=== PATIENT | male | born 1975 ===

== ENCOUNTER 2018-05-24 12:18 | Emergency (ER) | payer BC ==
[~2018-05-24] VITALS: Ht 172.7 cm; Wt 71.7 kg
[2018-05-24 12:42] LABS: BASOPHILS % (AUTO) 0.5 % (0.0-2.0); EOSINOPHILS % (AUTO) 1.4 % (0.0-7.0); HEMATOCRIT 24.6 % (36.7-47.1); HEMOGLOBIN 8.3 g/dL (12.5-16.3); LYMPHOCYTES # (AUTO) 1.1 K/uL (20.0-40.0); LYMPHOCYTES % (AUTO) 31.4 % (20.5-51.5); MEAN CORPUSCULAR HEMOGLOBIN 28.6 uug (23.8-33.4); MEAN CORPUSCULAR HGB CONC 34 g/dL (32.5-36.3); MEAN CORPUSCULAR VOLUME 85.5 fL (73.0-96.2); MONOCYTES # (AUTO) 0.2 K/uL (2.0-10.0); MONOCYTES % (AUTO) 5.7 % (0.0-11.0); PLATELET COUNT (AUTO) 200 K/uL (152-348); RED BLOOD CELL COUNT(AUTO) 2.88 MIL/uL (4.06-5.63); WHITE BLOOD COUNT (AUTO) 3.3 K/uL (3.6-10.2)
[2018-05-24 12:51] LABS: CREATININE 0.9 mg/dL (0.6-1.3); POTASSIUM 3.6 mmol/L (3.5-5.1)
[2018-05-24 12:56] LABS: BILIRUBIN,DIRECT 0.1 mg/dL (0.0-0.2); BILIRUBIN,TOTAL 0.1 mg/dL (0.2-1.0); TOTAL PROTEIN, SERUM 6.2 g/dL (6.4-8.2)
--- NOTE | 2018-05-24 13:07 | NUR ---
Parents x2 are bedside, pending results and disposition
--- NOTE | 2018-05-24 15:00 | NUR ---
DOUBLE CHECKED THE ONE UNIT OF PRBC WITH ANTHONY LYON AGAINST PATIENT'S [place] AND VERBAL VERIFICATION.
--- NOTE | 2018-05-24 15:15 | NUR ---
1458: Consent reviewed 1500: one unit PRBC was double checked with 2 nurses (ANTHONY Salvador & DATA VIRTUAL[employer]ATION CONSULTANT Erick). TIMEOUT done with patient. Please see blood transfusion record in the [facility] for vital signs.
--- NOTE | 2018-05-24 15:54 | NUR ---
Patient is resting comfortably on gurney with eyes closed
--- NOTE | 2018-05-24 16:28 | NUR ---
Patient self catheterizes with his own urinary supplies from home, pending disposition@this time
--- NOTE | 2018-05-24 16:54 | NUR ---
IV removed. Catheter intact and site benign. Pressure and 4x4 gauze applied to site. No bleeding noted. Patient discharged to home in stable conditon. Written and verbal after care instructions given to patient. Patient verbalizes understanding of instructions. Patient's parents are coming to picker packer the patient.
== END 2018-05-24 17:11 | disposition home or self-care (01) ==
LOC: ER 12:21
DX: K92.2 Gastrointestinal hemorrhage, unspecified (principal); D64.9 Anemia, unspecified; G82.20 Paraplegia, unspecified; Z88.8 Allergy status to other drugs, medicaments and biological substances
CPT/HCPCS: 36415; 36430; 80048; 80076; 85025; 85730; 86850; 86900; 86901; 86920; 99285; A4663; J7040; P9016; P9021